=== PATIENT | male | born 1935 | race Caucasian/White ===

== ENCOUNTER 2016-09-19 16:19 | Emergency (ER) | payer SELFPAY ==
[2016-09-19 17:06] LABS: HEMOGLOBIN 12.7 gm/dl (14.0-17.5); RED BLOOD COUNT 4.4 M/UL (4.20-5.50); WHITE BLOOD COUNT 6.9 K/UL (4.5-11.0)
[2016-09-19 17:39] LABS: BUN/CREATININE RATIO 20 (0-10)
[2017-02-21] MEDS ORDERED: ISOSORBIDE MONO60 MG PO (07:19)
[2017-02-21] MEDS ORDERED: CATAPRES 0.1MG0.1 MG PO (07:20)
[2017-02-21] MEDS ORDERED: COREG 25MG TAB25 MG PO (07:21)
[2017-02-21] MEDS ORDERED: HYDROCHLOROTHIA25 MG PO (07:21)
[2017-02-21] MEDS ORDERED: GLUCOTROL XL10 MG PO (07:22)
[2017-02-21] MEDS ORDERED: GLUCOPHAGE1000 MG PO (07:22)
[2017-02-21] MEDS ORDERED: LASIX20 MG PO (07:23)
[2017-02-21] MEDS ORDERED: VALSARTAN160 MG PO (07:23)
[2017-02-21] MEDS ORDERED: SIMBRINZA 1%-0.28 ML OP (07:24)
[2017-02-21] MEDS ORDERED: LATANOPROST2.5 ML OP (07:24)
[2017-02-21] MEDS ORDERED: ELIQUIS5 MG PO (07:31)
[2017-02-21] MEDS ORDERED: ASPIR 8181 MG PO (07:31)
== END 2016-09-19 20:05 | disposition home or self-care (01) ==
LOC: ER1 16:19
PROVIDERS: Emergency Medicine
DX: S22.31XA Fracture of one rib, right side, initial encounter for closed fracture (principal); I48.91 Unspecified atrial fibrillation; Z79.01 Long term (current) use of anticoagulants; V49.40XA Driver injured in collision with unspecified motor vehicles in traffic accident, initial encounter; Y93.89 Activity, other specified; Y92.410 Unspecified street and highway as the place of occurrence of the external cause
CPT/HCPCS: 70450; 71250; 72125; 80053; 82550; 82553; 83874; 84484; 85025; 85610; 85730; 90471; 90715; 99284

== ENCOUNTER → 2016-11-08 | Outpatient (CLI) | payer MEDICARE, BC ==
[~2016-11-08] MED LIST: ASPIR 8181 MG PO; CATAPRES 0.1MG0.1 MG PO; COREG 25MG TAB25 MG PO; ELIQUIS5 MG PO; GLUCOPHAGE1000 MG PO; GLUCOTROL XL10 MG PO; HYDROCHLOROTHIA25 MG PO; ISOSORBIDE MONO60 MG PO; LASIX20 MG PO; LATANOPROST2.5 ML OP; SIMBRINZA 1%-0.28 ML OP; VALSARTAN160 MG PO
== END ==
LOC: OPSV 12:41
DX: M54.9 Dorsalgia, unspecified (principal); G89.29 Other chronic pain
CPT/HCPCS: G0463

== ENCOUNTER → 2016-11-13 | Outpatient (CLI) | payer MEDICARE, BC ==
[2016-11-13 12:57] LABS: HEMOGLOBIN 12.8 gm/dl (14.0-17.5); RED BLOOD COUNT 4.41 M/UL (4.20-5.50)
== END ==
LOC: LAB 11:12
PROVIDERS: Internal Medicine Infectious Disease
DX: M46.40 Discitis, unspecified, site unspecified (principal)
CPT/HCPCS: 36415; 85025; 86140

== ENCOUNTER → 2016-11-23 | Outpatient (CLI) | payer MEDICARE, BC ==
[~2016-11-23] VITALS: Ht 177.8 cm; Wt 106.6 kg
[2016-11-23 15:42] LABS: HEMOGLOBIN 12.6 gm/dl (14.0-17.5); RED BLOOD COUNT 4.26 M/UL (4.20-5.50); WHITE BLOOD COUNT 5.9 K/UL (4.5-11.0)
[2016-11-23 16:02] LABS: BUN/CREATININE RATIO 34 (0-10)
== END ==
LOC: OPSV 10:35
PROVIDERS: Internal Medicine Infectious Disease
DX: M46.44 Discitis, unspecified, thoracic region (principal)
CPT/HCPCS: 36592; 71010; 80053; 82550; 85025; 86140; 87040; 96365; J0878; J7050

== ENCOUNTER → 2016-11-24 | Outpatient (CLI) | payer MEDICARE, BC ==
[~2016-11-24] VITALS: Ht 177.8 cm; Wt 106.6 kg
== END ==
LOC: OPSV 08:05
DX: M46.44 Discitis, unspecified, thoracic region (principal)
CPT/HCPCS: 96365; J0878; J7050

== ENCOUNTER → 2016-11-25 | Outpatient (CLI) | payer MEDICARE, BC ==
[~2016-11-25] VITALS: Ht 177.8 cm; Wt 106.6 kg
== END ==
LOC: OPSV 08:30
DX: M46.44 Discitis, unspecified, thoracic region (principal)
CPT/HCPCS: 96365; J0878; J7050

== ENCOUNTER → 2016-11-26 | Outpatient (CLI) | payer MEDICARE, BC ==
[~2016-11-26] VITALS: Ht 177.8 cm; Wt 106.6 kg
== END ==
LOC: OPSV 12:39
DX: Z45.2 Encounter for adjustment and management of vascular access device (principal); M46.44 Discitis, unspecified, thoracic region
CPT/HCPCS: 96365; J0878; J7050

== ENCOUNTER → 2016-11-27 | Outpatient (CLI) | payer MEDICARE, BC ==
[~2016-11-27] VITALS: Ht 177.8 cm; Wt 106.6 kg
== END ==
LOC: OPSV 11-26 09:00
DX: Z45.2 Encounter for adjustment and management of vascular access device (principal); M46.44 Discitis, unspecified, thoracic region
CPT/HCPCS: 96365; J0878; J7050

== ENCOUNTER → 2016-11-28 | Outpatient (CLI) | payer MEDICARE, BC | LOC: KOH-I 15:35 | DX: M25.511 Pain in right shoulder (principal); M79.89 Other specified soft tissue disorders | CPT/HCPCS: 73030; 73060; 73080; 96365; J0878; J7050 ==

== ENCOUNTER → 2016-11-29 | Outpatient (CLI) | payer MEDICARE, BC ==
[~2016-11-29] VITALS: Ht 177.8 cm; Wt 106.6 kg
== END ==
LOC: OPSV 11:00
DX: M46.44 Discitis, unspecified, thoracic region (principal)
CPT/HCPCS: 96365; J0878; J7050

== ENCOUNTER → 2016-11-30 | Outpatient (CLI) | payer MEDICARE, BC | LOC: OPSV 09:24 | DX: M46.44 Discitis, unspecified, thoracic region (principal) | CPT/HCPCS: 96365; J0878; J7050 ==

== ENCOUNTER → 2016-12-02 | Outpatient (CLI) | payer MEDICARE, BC ==
[~2016-12-02] VITALS: Ht 177.8 cm; Wt 106.6 kg
== END ==
LOC: OPSV 08:40
DX: M46.44 Discitis, unspecified, thoracic region (principal)
CPT/HCPCS: 96365; J0878; J7050

== ENCOUNTER → 2016-12-03 | Outpatient (CLI) | payer MEDICARE, BC ==
[~2016-12-03] VITALS: Ht 177.8 cm; Wt 106.6 kg
== END ==
LOC: OPSV 11:00
DX: M46.44 Discitis, unspecified, thoracic region (principal)
CPT/HCPCS: 96365; J0878; J7050

== ENCOUNTER → 2016-12-04 | Outpatient (CLI) | payer MEDICARE, BC ==
[~2016-12-04] VITALS: Ht 177.8 cm; Wt 106.6 kg
== END ==
LOC: OPSV 11:00
DX: M46.44 Discitis, unspecified, thoracic region (principal)
CPT/HCPCS: 96365; J0878; J7050

== ENCOUNTER → 2016-12-05 | Outpatient (CLI) | payer MEDICARE, BC | LOC: OPSV 11:00 | DX: M46.44 Discitis, unspecified, thoracic region (principal) | CPT/HCPCS: 96365; J0878; J7050 ==

== ENCOUNTER → 2016-12-06 | Outpatient (CLI) | payer MEDICARE, BC ==
[~2016-12-06] VITALS: Ht 177.8 cm; Wt 106.6 kg
[2016-12-06 13:59] LABS: BUN/CREATININE RATIO 22 (0-10)
== END ==
LOC: OPSV 11:00
PROVIDERS: Internal Medicine Infectious Disease
DX: M46.44 Discitis, unspecified, thoracic region (principal)
CPT/HCPCS: 36592; 80048; 82550; 96365; J0878; J7050

== ENCOUNTER → 2016-12-07 | Outpatient (CLI) | payer MEDICARE, BC ==
[~2016-12-07] VITALS: Ht 177.8 cm; Wt 106.6 kg
== END ==
LOC: OPSV 08:52
DX: M46.44 Discitis, unspecified, thoracic region (principal)
CPT/HCPCS: 96365; J0878; J7050

== ENCOUNTER → 2016-12-08 | Outpatient (CLI) | payer MEDICARE, BC ==
[~2016-12-08] VITALS: Ht 177.8 cm; Wt 106.6 kg
== END ==
LOC: OPSV 08:27
DX: M46.44 Discitis, unspecified, thoracic region (principal)
CPT/HCPCS: 96365

== ENCOUNTER → 2016-12-09 | Outpatient (CLI) | payer MEDICARE, BC ==
[~2016-12-09] VITALS: Ht 177.8 cm; Wt 106.6 kg
== END ==
LOC: OPSV 08:17
DX: M46.44 Discitis, unspecified, thoracic region (principal)
CPT/HCPCS: 96365; J0878; J7050

== ENCOUNTER → 2016-12-10 | Outpatient (CLI) | payer MEDICARE, BC ==
[~2016-12-10] VITALS: Ht 177.8 cm; Wt 106.6 kg
== END ==
LOC: OPSV 09:00
PROVIDERS: Internal Medicine Infectious Disease
DX: M46.44 Discitis, unspecified, thoracic region (principal)
CPT/HCPCS: 36592; 80048; 82550; 96365; J0878; J7050

== ENCOUNTER → 2016-12-11 | Outpatient (CLI) | payer MEDICARE, BC ==
[~2016-12-11] VITALS: Ht 177.8 cm; Wt 106.6 kg
== END ==
LOC: OPSV 11:27
PROVIDERS: Internal Medicine Infectious Disease
DX: M46.44 Discitis, unspecified, thoracic region (principal)
CPT/HCPCS: 36592; 80048; 82550; 96365; J0878; J7050

== ENCOUNTER → 2016-12-12 | Outpatient (CLI) | payer MEDICARE, BC ==
[~2016-12-12] VITALS: Ht 177.8 cm; Wt 106.6 kg
== END ==
LOC: OPSV 11:30
DX: M46.44 Discitis, unspecified, thoracic region (principal)
CPT/HCPCS: 96365; J0878; J7050

== ENCOUNTER → 2016-12-13 | Outpatient (CLI) | payer MEDICARE, BC ==
[~2016-12-13] VITALS: Ht 177.8 cm; Wt 106.6 kg
== END ==
LOC: OPSV 11:30
DX: M46.44 Discitis, unspecified, thoracic region (principal)
CPT/HCPCS: 96365; J0878; J7050

== ENCOUNTER → 2016-12-14 | Outpatient (CLI) | payer MEDICARE, BC ==
[~2016-12-14] VITALS: Ht 177.8 cm; Wt 106.6 kg
== END ==
LOC: OPSV 11:30
DX: M46.44 Discitis, unspecified, thoracic region (principal)
CPT/HCPCS: 96365; J0878; J7050

== ENCOUNTER → 2016-12-15 | Outpatient (CLI) | payer MEDICARE, BC ==
[~2016-12-15] VITALS: Ht 177.8 cm; Wt 106.6 kg
== END ==
LOC: OPSV 07:49
DX: M46.44 Discitis, unspecified, thoracic region (principal)
CPT/HCPCS: 96365; J0878; J7050

== ENCOUNTER → 2016-12-16 | Outpatient (CLI) | payer MEDICARE, BC ==
[~2016-12-16] VITALS: Ht 177.8 cm; Wt 106.6 kg
== END ==
LOC: OPSV 08:08
DX: M46.44 Discitis, unspecified, thoracic region (principal)
CPT/HCPCS: 96365

== ENCOUNTER → 2016-12-17 | Outpatient (CLI) | payer MEDICARE, BC ==
[~2016-12-17] VITALS: Ht 177.8 cm; Wt 106.6 kg
[2016-12-17 12:29] LABS: BUN/CREATININE RATIO 31 (0-10)
== END ==
LOC: OPSV 11:36
PROVIDERS: Internal Medicine Infectious Disease
DX: M46.44 Discitis, unspecified, thoracic region (principal)
CPT/HCPCS: 36592; 80048; 82550; 96365; J0878; J7050

== ENCOUNTER → 2016-12-18 | Outpatient (CLI) | payer MEDICARE, BC ==
[~2016-12-18] VITALS: Ht 177.8 cm; Wt 106.6 kg
== END ==
LOC: OPSV 11:30
DX: M46.44 Discitis, unspecified, thoracic region (principal)
CPT/HCPCS: 96365; J0878; J7050

== ENCOUNTER → 2016-12-19 | Outpatient (CLI) | payer MEDICARE, BC ==
[~2016-12-19] VITALS: Ht 177.8 cm; Wt 106.6 kg
== END ==
LOC: OPSV 11:28
DX: M46.44 Discitis, unspecified, thoracic region (principal)
CPT/HCPCS: 96365; J0878; J7050

== ENCOUNTER → 2016-12-20 | Outpatient (CLI) | payer MEDICARE, BC ==
[~2016-12-20] VITALS: Ht 177.8 cm; Wt 106.6 kg
== END ==
LOC: OPSV 11:20
DX: M46.44 Discitis, unspecified, thoracic region (principal)
CPT/HCPCS: 96365; J0878; J7050

== ENCOUNTER → 2016-12-21 | Outpatient (CLI) | payer MEDICARE, BC ==
[~2016-12-21] VITALS: Ht 177.8 cm; Wt 106.6 kg
== END ==
LOC: OPSV 11:29
DX: M46.44 Discitis, unspecified, thoracic region (principal)
CPT/HCPCS: 96365; J0878; J7050

== ENCOUNTER → 2016-12-22 | Outpatient (CLI) | payer MEDICARE, BC ==
[~2016-12-22] VITALS: Ht 177.8 cm; Wt 106.6 kg
== END ==
LOC: OPSV 07:59
DX: M46.44 Discitis, unspecified, thoracic region (principal)
CPT/HCPCS: 96365; J0878; J7050

== ENCOUNTER → 2016-12-23 | Outpatient (CLI) | payer MEDICARE, BC | LOC: OPSV 08:13 | DX: M46.44 Discitis, unspecified, thoracic region (principal) | CPT/HCPCS: 96365; J0878; J7050 ==

== ENCOUNTER → 2016-12-24 | Outpatient (CLI) | payer MEDICARE, BC ==
[~2016-12-24] VITALS: Ht 177.8 cm; Wt 106.6 kg
== END ==
LOC: OPSV 11:22
DX: M46.44 Discitis, unspecified, thoracic region (principal)
CPT/HCPCS: 96365; J0878; J7050

== ENCOUNTER → 2016-12-25 | Outpatient (CLI) | payer MEDICARE, BC ==
[~2016-12-25] VITALS: Ht 177.8 cm; Wt 106.6 kg
== END ==
LOC: OPSV 11:30
DX: M46.44 Discitis, unspecified, thoracic region (principal)
CPT/HCPCS: 96365; J0878; J7050

== ENCOUNTER → 2016-12-26 | Outpatient (CLI) | payer MEDICARE, BC ==
[~2016-12-26] VITALS: Ht 177.8 cm; Wt 106.6 kg
== END ==
LOC: OPSV 11:26
DX: M46.44 Discitis, unspecified, thoracic region (principal)
CPT/HCPCS: 96365; J0878; J7050

== ENCOUNTER → 2016-12-27 | Outpatient (CLI) | payer MEDICARE, BC ==
[~2016-12-27] VITALS: Ht 177.8 cm; Wt 106.6 kg
== END ==
LOC: OPSV 11:23
DX: M46.44 Discitis, unspecified, thoracic region (principal)
CPT/HCPCS: 96365; J0878; J7050

== ENCOUNTER → 2016-12-28 | Outpatient (CLI) | payer MEDICARE, BC ==
[~2016-12-28] VITALS: Ht 177.8 cm; Wt 106.6 kg
== END ==
LOC: OPSV 11:23
DX: M46.44 Discitis, unspecified, thoracic region (principal)
CPT/HCPCS: 96365; J0878; J7050

== ENCOUNTER → 2016-12-29 | Outpatient (CLI) | payer MEDICARE, BC | LOC: OPSV 08:35 | DX: M46.44 Discitis, unspecified, thoracic region (principal) | CPT/HCPCS: 96365; J0878; J7050 ==

== ENCOUNTER → 2016-12-30 | Outpatient (CLI) | payer MEDICARE, BC ==
[~2016-12-30] VITALS: Ht 177.8 cm; Wt 106.6 kg
== END ==
LOC: OPSV 08:25
DX: M46.44 Discitis, unspecified, thoracic region (principal)
CPT/HCPCS: 96365; J0878; J7050

== ENCOUNTER → 2016-12-31 | Outpatient (CLI) | payer MEDICARE, BC ==
[~2016-12-31] VITALS: Ht 177.8 cm; Wt 106.6 kg
== END ==
LOC: OPSV 11:23
DX: M46.44 Discitis, unspecified, thoracic region (principal)
CPT/HCPCS: 36415; 73030; 80048; 85025; 86140; 96365; 99283; J0878; J7050

== ENCOUNTER → 2017-01-01 | Outpatient (CLI) | payer MEDICARE, BC ==
[~2017-01-01] VITALS: Ht 177.8 cm; Wt 106.6 kg
== END ==
LOC: OPSV 11:30
DX: M46.44 Discitis, unspecified, thoracic region (principal)
CPT/HCPCS: 96365; J0878; J7050

== ENCOUNTER → 2017-01-02 | Outpatient (CLI) | payer MEDICARE, BC ==
[~2017-01-02] VITALS: Ht 177.8 cm; Wt 106.6 kg
== END ==
LOC: OPSV 11:26
DX: M46.44 Discitis, unspecified, thoracic region (principal)
CPT/HCPCS: 96365; J0878; J7050

== ENCOUNTER → 2017-01-03 | Outpatient (CLI) | payer MEDICARE, BC ==
[~2017-01-03] VITALS: Ht 177.8 cm; Wt 106.6 kg
== END ==
LOC: OPSV 11:24
DX: M46.44 Discitis, unspecified, thoracic region (principal)
CPT/HCPCS: 96365; J0878; J7050

== ENCOUNTER → 2017-01-04 | Outpatient (CLI) | payer MEDICARE, BC ==
[~2017-01-04] VITALS: Ht 177.8 cm; Wt 106.6 kg
== END ==
LOC: OPSV 11:20
DX: M46.44 Discitis, unspecified, thoracic region (principal)
CPT/HCPCS: 96365; J0878; J7050

== ENCOUNTER → 2017-01-05 | Outpatient (CLI) | payer MEDICARE, BC ==
[~2017-01-05] VITALS: Ht 177.8 cm; Wt 106.6 kg
== END ==
LOC: OPSV 09:36
DX: M46.44 Discitis, unspecified, thoracic region (principal)
CPT/HCPCS: 96365; J0878; J7050

== ENCOUNTER → 2017-01-06 | Outpatient (CLI) | payer MEDICARE, BC ==
[~2017-01-06] VITALS: Ht 177.8 cm; Wt 106.6 kg
== END ==
LOC: OPSV 08:00
DX: M46.44 Discitis, unspecified, thoracic region (principal)
CPT/HCPCS: 96365; J0878; J7050

== ENCOUNTER → 2017-01-07 | Outpatient (CLI) | payer MEDICARE, BC ==
[~2017-01-07] VITALS: Ht 177.8 cm; Wt 106.6 kg
[2017-01-07 12:18] LABS: BUN/CREATININE RATIO 22 (0-10)
== END ==
LOC: OPSV 11:25
PROVIDERS: Internal Medicine Infectious Disease
DX: M46.44 Discitis, unspecified, thoracic region (principal)
CPT/HCPCS: 36592; 80048; 82550; 96365; J0878; J7050

== ENCOUNTER → 2017-01-08 | Outpatient (CLI) | payer MEDICARE, BC | LOC: OPSV 11:30 | DX: M46.44 Discitis, unspecified, thoracic region (principal) | CPT/HCPCS: 96365; J0878; J7050 ==

== ENCOUNTER → 2017-01-09 | Outpatient (CLI) | payer MEDICARE, BC ==
[~2017-01-09] VITALS: Ht 177.8 cm; Wt 106.6 kg
== END ==
LOC: OPSV 11:30
DX: M46.44 Discitis, unspecified, thoracic region (principal)
CPT/HCPCS: 96365; J0878; J7050